=== PATIENT | male | born 1945 | race Caucasian/White ===

== ENCOUNTER 2020-10-14 09:57 | Emergency (ER) | payer MEDICARE, OTHER ==
--- NOTE | 2020-10-14 10:55 | XRAY Report ---
PROCEDURE: Chest 1 View X-Ray INDICATIONS: Chest Pain TECHNIQUE: One view of the chest was acquired. COMPARISON: None FINDINGS: Surgical changes and devices: None. Lungs and pleura: No pleural effusions or pneumothorax. Lungs are clear. Mediastinum: Mediastinal contours appear normal. Heart size is normal. Bones and chest wall: No suspicious bony lesions. Overlying soft tissues appear unremarkable. IMPRESSION: No acute pulmonary process. Reviewed by: Zayda Marrero MD on 10/14/2020 10:53 AM PDT Approved by: Zayda Marrero MD on 10/14/2020 10:53 AM PDT Station ID: [id number]
--- NOTE | 2020-10-14 10:55 | ED Physician Documentation ---
PD HPI CHEST PAIN - Stated complaint Stated Complaint: CHEST PX - Chief complaint Chief Complaint: Cardiac - History obtained from History obtained from: Patient - History of Present Illness Timing - onset: Today Timing - onset during: Exertion (she has been paddling kayak and today feeling some pain right pectoral area with arm/shoulder movement. Did want to ensure not heart related so went to walk in clinic. BP noted elevated and referred to ER. ECG was normal. Pt states BP usually 130-140 systolic. Had been on BP med in the past.) Timing - duration: Hours Timing - details: Gradual onset, Still present, Waxing and waning (worse with shoulder movement.) Quality: Aching. No: Pressure, Tightness, Sharp Location: Right chest (pectoral area) Radiation: No: Jaw, Neck, Back Improved by: Rest Worsened by: Movement. No: Exertion Associated symptoms: No: Shortness of air, Nausea, Feeling faint / dizzy, General Weakness, Palpitations, Cough Similar symptoms before: Has not had sx before Recently seen: Not recently seen Review of Systems Constitutional: denies: Fever, Chills Nose: denies: Rhinorrhea / runny nose, Congestion Throat: denies: Sore throat Respiratory: denies: Cough Skin: denies: Rash, Lesions Neurologic: denies: Focal weakness, Numbness PD PAST MEDICAL HISTORY - Past Medical History Past Medical History: Yes Cardiovascular: Hypertension Respiratory: None Neuro: None Endocrine/Autoimmune: None GI: None : Kidney stones HEENT: None Psych: None Musculoskeletal: None Derm: None - Past Surgical History Past Surgical History: Yes HEENT: Other - Present Medications Home Medications: Ambulatory Orders Medication Instructions Recorded Confirmed lisinopriL [Lisinopril] 10 mg PO DAILY #30 tablet 10/14/20 - Allergies Allergies/Adverse Reactions: Allergies Allergy/AdvReac Type Severity Reaction Status Date / Time No Known Drug Allergies Allergy Verified 10/14/20 10:20 - Social History Does the pt smoke?: No Smoking Status: Former smoker Does the pt drink ETOH?: No Does the pt have substance abuse?: No - Immunizations Immunizations are current?: Yes PD ED PE NORMAL - Vitals Vital signs reviewed: Yes - General General: Alert and oriented X 3, Well developed/nourished - Neck Neck: Supple, no meningeal sign, No adenopathy - Cardiac Cardiac: RRR, No murmur - Respiratory Respiratory: Clear bilaterally, Other (right pectoral muscle tenderness to palpation. ) - Abdomen Abdomen: Soft, Non tender - Derm Derm: Normal color, Warm and dry - Neuro Neuro: Alert and oriented X 3, No motor deficit, No sensory deficit, Normal speech Results - Vitals Vitals: Oxygen O2 Source Room air - EKG (time done) 10:23 Rate: Rate (enter#) (56) Rhythm: NSR [place]: Normal Intervals: Normal DE QRS: Normal Ischemia: Normal ST segments. No: ST elevation c/w ischemia, ST depression - Labs Labs: Laboratory Tests 10/14/20 10/14/20 10/14/20 10:35 10:35 10:35 WBC 7.4 RBC 5.04 Hgb 15.7 Hct 47.5 MCV 94.2 H MCH 31.2 H MCHC 33.1 RDW 12.8 Plt Count 204 MPV 11.5 H Neut # (Auto) 5.2 Lymph # (Auto) 1.6 [place] # (Auto) 0.5 Eos # (Auto) 0.1 Baso # (Auto) 0.1 Absolute Nucleated RBC 0.00 Nucleated RBC % 0.0 Sodium 137 Potassium 4.4 Chloride 100 L Carbon Dioxide 28 Anion Gap 9.0 BUN 9 Creatinine 0.9 Estimated GFR (MDRD) 83 L Glucose 126 H Calcium 9.8 Total Bilirubin 1.3 H AST 24 ALT 18 Alkaline Phosphatase 72 Troponin I High Sens 7.0 Total Protein 6.9 Albumin 4.4 Globulin 2.5 Albumin/Globulin Ratio 1.8 Lipase 20 L - Rads (name of study) chest xray Radiology: Prelim report reviewed (no acute process), See rad report PD MEDICAL DECISION MAKING - ED course Complexity details: considered differential (per AHA and ACEP guidelines, do not want to bring BP down promptly. She can resume her prior BP med for long acting. Her chest pain seems muscular. ), d/w patient Departure - Departure Disposition: 01 Home, Self Care Clinical Impression: Elevated blood pressure reading, Acute chest wall pain Condition: Stable Record reviewed to determine appropriate education?: Yes Instructions: ED Strain Chest Wall Prescriptions: lisinopriL [Lisinopril] 10 mg PO DAILY #30 tablet Comments: Your EKG, chest x-ray, blood tests are normal without any signs of more significant cause for the pain in the right anterior chest. I presume it is muscular. You can use Tylenol every 4-6 hours if needed for the pains. Your blood pressure reading is elevated today. It sounds like your baseline is usually good. You can resume your prior blood pressure medicine lisinopril 10 mg daily. However we would not want to overtreat the blood pressure if it just happens to be elevated for a few days. Stay regularly hydrated. Low-salt diet. Discharge Date/Time: 10/14/20 12:32
[2020-10-14 10:56] LABS: BASOPHILS # (AUTO) 0.1 10^3/uL (0.0-0.1); BASOPHILS % (AUTO) 0.7 %; EOSINOPHILS # (AUTO) 0.1 10^3/uL (0.0-0.7); EOSINOPHILS % (AUTO) 0.7 %; HCT - HEMATOCRIT 47.5 % (42.0-52.0); HGB - HEMOGLOBIN 15.7 g/dL (14.0-18.0); LYMPHOCYTES # (AUTO) 1.6 10^3/uL (1.5-3.5); LYMPHOCYTES % (AUTO) 21.4 %; MEAN CORPUSCULAR HEMOGLOBIN 31.2 pg (27.0-31.0); MEAN CORPUSCULAR HGB CONC 33.1 g/dL (32.0-36.0); MEAN CORPUSCULAR VOLUME 94.2 fL (80.0-94.0); MEAN PLATELET VOLUME 11.5 fL (7.4-11.4); MONOCYTES # (AUTO) 0.5 10^3/uL (0.0-1.0); MONOCYTES % (AUTO) 6.6 %; NEUTROPHILS # (AUTO) 5.2 10^3/uL (1.5-6.6); NEUTROPHILS % (AUTO) 70.3 %; PLT - PLATELET COUNT 204 10^3/uL (130-450); RED BLOOD COUNT 5.04 10^6/uL (4.70-6.10); RED CELL DISTRIBUTION WIDTH 12.8 % (12.0-15.0); WHITE BLOOD COUNT 7.4 x10^3/uL (4.8-10.8)
[2020-10-14 11:14] LABS: ALBUMIN 4.4 g/dL (3.2-5.5); ALBUMIN/GLOBULIN RATIO 1.8 (1.0-2.2); BILIRUBIN,TOTAL 1.3 mg/dL (0.2-1.0); CALCIUM 9.8 mg/dL (8.5-10.3); CREATININE 0.9 mg/dL (0.6-1.2); POTASSIUM 4.4 mmol/L (3.5-5.0); TOTAL PROTEIN 6.9 g/dL (6.7-8.2)
[2020-10-14] MEDS: ACETAMINOPHEN 325 MG TABLET PO STA (12:19)
[2020-10-14] MEDS: lisinopriL 5 MG TABLET PO STA (12:20)
[2020-10-14 12:21] VITALS: BP 151/64
== END 2020-10-14 12:32 | disposition home or self-care (01) ==
LOC: ED 09:57
DX: R07.89 Other chest pain (principal); I10 Essential (primary) hypertension; Z87.891 Personal history of nicotine dependence
CPT/HCPCS: 36415; 71045; 80053; 83690; 84484; 85025; 93005; 99284; A9270